=== PATIENT | female | born 1960 | race Caucasian/White ===

== ENCOUNTER 2023-01-08 10:19 | Observation (INO) | payer OTHER ==
[2023-01-08 10:23] VITALS: TEMP 97.9
[2023-01-08] MEDS ORDERED: KETOROLAC 15 MG/ML 1 ML VIAL IM STA (10:58)
[2023-01-08] MEDS ORDERED: LIDOCAINE 5% PATCH TOPICAL STA (11:12)
[2023-01-08] MEDS ORDERED: LIDOCAINE 5% PATCH TOPICAL SCH (11:15)
--- NOTE | 2023-01-08 11:55 | CT ---
EXAMINATION TYPE: CT sacrum wo con DATE OF EXAM: 01/08/2023 COMPARISON: None HISTORY: DDD, incontinence of bowels CT DLP: 1148 mGycm Automated exposure control for dose reduction was used. FINDINGS: There is broad-based disc herniation greater paracentrally on the right with ligamentum flavum hypert rophy is seen at the first 2 images and partially included in the field of view compatible severe can al stenosis sac compression with bilateral foraminal protrusion. Disc herniation or fragment extendin g extruded along the paracentral margin of the L5 vertebral body not excluded recommend MRI. Small bone island is seen within the left iliac bone. The sacrum is intact and the SI joints are symm etric. No acute fracture. Spina bifida occulta sacrococcygeal junction. Remaining osseous structures are intact. IMPRESSION: 1. PARTIALLY INCLUDED IN FIELD OF VIEW IS WHAT APPEARS TO BE A DISC HERNIATION GREATER PARACENTRALLY ON THE RIGHT 4-L5 WITH POSSIBLE EXTRUDED FRAGMENT AND SEVERE COMPRESSION OF THECAL SAC AND FORAMINAL ENCROACHMENT. MRI RECOMMENDED.
--- NOTE | 2023-01-08 12:05 | CT ---
EXAMINATION TYPE: CT lumbar spine wo con DATE OF EXAM: 01/08/2023 11:50 AM COMPARISON: None HISTORY: DDD, incontinence of bowels CT DLP: 1304.2 mGycm Automated exposure control for dose reduction was used. Unenhanced CT of the lumbar spine was performed. Bone and soft tissue window settings are submitted as well as coronal and sagittal reconstructions. There is degenerative disc disease L2-L3 and there are multiple levels of Schmorl's nodes. Gallstones are incidentally noted. L1-L2: Normal disc space height. No disc herniation protrusion or central stenosis. No facet joint arthropathy. No evidence for foraminal encroachment. L2-L3: Diffuse disc bulging with facet arthropathy and ligamentum flavum protrusion. There is central canal stenosis and bilateral foraminal encroachment. L3-L4: Circumferential disc bulging. There is mild facet uropathy. Mild bilateral foraminal protrusio n with borderline canal doses. L4-L5: There is a large central and right paracentral disc herniation with possible extruded fragment resulting in severe compression of thecal sac and bilateral foraminal impingement. Extruded fragment extending in the right lateral recess and the differential diagnosis and the diagnosis is limited by a noncontrast CT in resolution recommended MRI. L5-S1: Normal disc space height. No disc herniation protrusion or central stenosis. No facet joint arthropathy. No evidence for foraminal encroachment. IMPRESSION: 1. At L4-L5 there is a large central/ right paracentral disc herniation with probable extruded fragme nt extending toward the right lateral recess and severe compression sac\spinal stenosis. Recommend MR I. Severe bilateral foraminal protrusions. 2. There is circumferential disc bulging L2-3 and L3-L4 with foraminal encroachment as discussed abov e. 3. Cholelithiasis
[2023-01-08] MEDS ORDERED: DEXAMETHASONE SOD PHOSPHATE 10 MG/ML 1 ML VIAL IVP STA (12:22)
[2023-01-08] MEDS ORDERED: SODIUM CHLORIDE 0.9% 1,000 ML IV STA (12:24)
[2023-01-08] MEDS ORDERED: HYDROmorphone 0.5 MG/0.5 ML SYRINGE IVP PRN (12:27)
--- NOTE | 2023-01-08 12:31 | ED ---
Back Pain HPI - General Chief Complaint: Back Pain/Injury Stated Complaint: Recheck Time Seen by Provider: 01/08/23 10:43 Source: patient Limitations: no limitations - History of Present Illness Initial Comments: Patient is a 62-year-old female who presents to the emergency department for back pain. Patient has chronic back pain she follows with her engineering technical specialist Dr. Brownlee. She normally has steroid injections which lately has not controlled her pain well. Patient states over the past 4 days she has had increased pain in her right lower back. No recent injury or fall. Patient has new onset numbness in her right lower extremity. She denies any focal deficit. Patient has also had consistent bowel and bladder incontinence. She denies fever, chills, burning with urination, blood in urine, blood in stool, abdominal pain, nausea, vomiting. No chest pain or shortness of breath. - Related Data Allergies Allergy/AdvReac Type Severity Reaction Status Date / Time No Known Allergies Allergy Verified 01/08/23 10:23 Review of Systems ROS Statement: Those systems with pertinent positive or pertinent negative responses have been documented in the HPI. ROS Other: All systems not noted in ROS Statement are negative. Past Medical History Past Medical History: Diabetes Mellitus Additional Past Medical History / Comment(s): Back History of Any Multi-Drug Resistant Organisms: None Reported Additional Past Surgical History / Comment(s): Neck, Carpal tunnel Past Psychological History: No Psychological Hx Reported Smoking Status: Current every day smoker Past Alcohol Use History: None Reported Past Drug Use History: Marijuana General Exam Limitations: no limitations General appearance: alert, in no apparent distress Head exam: Present: atraumatic, normocephalic, normal inspection Eye exam: Present: normal appearance, PERRL, EOMI. Absent: scleral icterus, conjunctival injection, periorbital swelling Respiratory exam: Present: normal lung sounds bilaterally. Absent: respiratory distress, wheezes, rales, rhonchi, stridor Cardiovascular Exam: Present: regular rate, normal rhythm, normal heart sounds. Absent: systolic murmur, diastolic murmur, rubs, gallop, clicks GI/Abdominal exam: Present: soft, normal bowel sounds. Absent: distended, tenderness, guarding, rebound, rigid Rectal exam: Present: normal rectal tone, hemorrhoids (external) Right Hip exam: Present: normal inspection, full ROM. Absent: tenderness, swelling Upper Leg exam: Present: normal inspection, full ROM Knee exam: Present: normal inspection, full ROM. Absent: tenderness, swelling Lower Leg exam: Present: normal inspection, full ROM. Absent: tenderness, swelling Ankle exam: Present: normal inspection, full ROM. Absent: tenderness, swelling Foot/Toe exam: Present: normal inspection, full ROM. Absent: tenderness, swelling Neurovascular tendon exam: Present: no vascular compromise Gait: observed and normal Neurological exam: Present: alert, oriented X3, CN II-XII intact Expanded Cranial nerves: EOM's Intact: Normal, Nystagmus: Normal, Facial Sensation: Normal, Facial Palsy with Forehead Movement: Normal, Facial Palsy without Forehead Movement: Normal Cerebellar function: Heel to [place]: Normal Sensory exam: Upper Extremity Light Touch: Normal, Lower Extremity Light Touch: Abnormal Right (non sensation of anterior/posterior thigh, anterior lower leg) Motor strength exam: RUE: 5, LUE: 5, RLE: 5, LLE: 5 Psychiatric exam: Present: normal affect, normal mood Skin exam: Present: warm, dry, intact, normal color. Absent: rash Course Vital Signs 01/08/23 10:20 Temperature 97.9 F Pulse Rate 60 Respiratory 22 Rate Blood Pressure 151/88 O2 Sat by Pulse 96 Oximetry Medical Decision Making - Medical Decision Making Was pt. sent in by a medical professional or institution (ISELA Haines, [employer], urgent care, hospital, or long-term...) When possible be specific @ -No Did you speak to anyone other than the patient for history (EMS, parent, family, police, friend...)? What history was obtained from this source @ -No Did you review nursing and triage notes (agree or disagree)? Why? @ -I reviewed and agree with nursing and triage notes Were old charts reviewed (outside hosp., previous admission, EMS record, old EKG, old radiological studies, urgent care reports/EKG's, long-term records)? Report findings @ -Reviewed MRI provided in paper copy showing bulging disks throughout the lumbar spine Differential Diagnosis (chest pain, altered mental status, abdominal pain women, abdominal pain men, vaginal bleeding, weakness, fever, dyspnea, syncope, headache, dizziness, GI bleed, back pain, seizure, CVA, palpatations, mental health)? @ -Differential Back Pain: Strain, zoster, cauda equina syndrome, epidural abscess, vertebral osteomyeli tis, discitis, fracture, subluxation, disc herniation, DJD, spinal stenosis, dissection, AAA, pancreatitis, peptic ulcer disease, pyelonephritis, kidney stone, this is not meant to be an all-inclusive list. EKG interpreted by me (3pts min.). @ -As above X-rays interpreted by me (1pt min.). @ -None done CT interpreted by me (1pt min.). @ -Yes, CT of the lumbar and sacral spine shows disc herniation greater paracentrally on the right L4-L5 of possible extruded fragment and severe com pression of the thecal sac and foraminal enroachment U/S interpreted by me (1pt. min.). @ -None done What testing was considered but not performed or refused? (CT, X-rays, U/S, labs)? Why? @ -None What meds were considered but not given or refused? Why? @ -None Did you discuss the management of the patient with other professionals (professionals i.e. , PA, [employer]WRITER, lab, RT, psych nurse, social security benefits interviewer, intranet developer, teacher, welfare officer, nurse case management)? Give summary @ -Yes, Dr. Ortega. See hospital course. Was smoking cessation discussed for >3mins.? @ -No Was critical care preformed (if so, how long)? @ -No Were there social determinants of health that impacted care today? How? (Homelessness, low income, unemployed, alcoholism, drug addiction, t ransportation, low edu. Level, literacy, decrease access to med. care, fdc, rehab)? @ -No Was there de-escalation of care discussed even if they declined (Discuss DNR or withdrawal of care, Hospice)? DNR status @ -No What co-morbidities impacted this encounter? (DM, HTN, Smoking, COPD, CAD, Cancer, CVA, ARF, Chemo, Hep., AIDS, mental health diagnosis, sleep apnea, morbid obesity)? @ -None Was patient admitted / discharged? Hospital course, mention meds given and route, prescriptions, significant lab abnormalities, going to OR and other pertinent info. @ -Patient presenting for back pain with new onset leg numbness and bowel and bladder incontinence. The right lower extremity is normal appearing DP 2+. Patient walks around and room during evaluation she has full range of motion. Patient does not have sensation of light touch to the right anterior and posterior thigh, right anterior lower leg. Patient has good rectal tone. Bladder scan < [address] of the lumbar and sacral spine shows disc herniation greater paracentrally on the right L4-L5 of possible extruded fragment and severe compression of the thecal sac and foraminal enroachment. Case discussed with Dr. Ortega who recommends admission to medicine with him on consult. Patient will have [id number] IV steroids. She is NPO for possible surgical procedure. Case discussed with Dr. Lion who accepts admission Undiagnosed new problem with uncertain prognosis? @ -[No] Drug Therapy requiring intensive ontoring for toxicity (Heparin, Ntr, Insulin, Cardizem)? @ -[No] Wre any procedures done? @ -[No] Diagnosis/syptom? @ Disc herniation, bowel and bladder incontinence Acute, or Chronic, or Acute on Chronic? @ -Acute Uncomplicated (without systemic symptoms) or Complicated (systemic symptoms)? @ -Complicated Side effects of treatment? @ -No Exacerbation, Progression, or Severe Exacerbation? @ -No Poses a threat to life or bodily function? How? (Chest pain, [place], [place], pneumonia, PE, COPD, DKA, ARF, appy, cholecystitis, CVA, Diverticulitis, Homicidal, Suicidal, threat to staff... and all critical care pts) @ -No Dr. Almanza is my attending - Lab Data Result diagrams: 01/08/23 13:02 01/08/23 13:02 Lab Results 01/08/23 01/08/23 Range/Units 13:02 13:02 WBC 7.0 (3.8-10.6) k/uL RBC 4.48 (3.80-5.40) m/uL Hgb 13.1 (11.4-16.0) gm/dL Hct 39.4 (34.0-46.0) % MCV 88.1 (80.0-100.0) fL MCH 29.3 (25.0-35.0) pg MCHC 33.2 (31.0-37.0) g/dL RDW 13.9 (11.5-15.5) % Plt Count 229 (150-450) k/uL MPV 8.4 Neutrophils % 59 % Lymphocytes % 32 % Monocytes % 4 % Eosinophils % 3 % Basophils % 0 % Neutrophils # 4.1 (1.3-7.7) k/uL Lymphocytes # 2.2 (1.0-4.8) k/uL Monocytes # 0.3 (0-1.0) k/uL Eosinophils # 0.2 (0-0.7) k/uL Basophils # 0.0 (0-0.2) k/uL Sodium 140 (137-145) mmol/L Potassium 4.5 (3.5-5.1) mmol/L Chloride 104 (98-107) mmol/L Carbon Dioxide 32 H (22-30) mmol/L Anion Gap 4 mmol/L BUN 9 (7-17) mg/dL Creatinine 0.57 (0.52-1.04) mg/dL Est GFR (CKD-EPI)AfAm >90 (>60 ml/min/1.73 sqM) Est GFR (CKD-EPI)NonAf >90 (>60 ml/min/1.73 sqM) Glucose 86 (74-99) mg/dL Calcium 8.5 (8.4-10.2) mg/dL Total Bilirubin 0.5 (0.2-1.3) mg/dL AST 24 (14-36) U/L ALT 21 (4-34) U/L Alkaline Phosphatase 72 (38-126) U/L Total Protein 6.0 L (6.3-8.2) g/dL Albumin 3.7 (3.5-5.0) g/dL Disposition Clinical Impression: Lumbar disc herniation, Bowel and bladder incontinence Disposition: ADMITTED IP TO THIS [facility] Condition: Stable Referrals: Suzan Prather, RN [REGISTERED NURSE] - 1-2 days
[2023-01-08] MEDS ORDERED: NALOXONE 0.4 MG/ML 1 ML VIAL IV PRN (12:47)
[2023-01-08] MEDS ORDERED: SODIUM CHLORIDE 0.9% 1,000 ML IV SCH (13:00)
[2023-01-08 13:08] LABS: Basophils % (A) 0 %; Eosinophils # (A) 0.2 k/uL (0-0.7); Eosinophils % (A) 3 %; HCT 39.4 % (34.0-46.0); HGB 13.1 gm/dL (11.4-16.0); Lymphocytes # (A) 2.2 k/uL (1.0-4.8); Lymphocytes % (A) 32 %; MCH 29.3 pg (25.0-35.0); MCHC 33.2 g/dL (31.0-37.0); MCV 88.1 fL (80.0-100.0); Mean Platelet Volume 8.4; Monocytes # (A) 0.3 k/uL (0-1.0); Monocytes % (A) 4 %; Neutrophils # (A) 4.1 k/uL (1.3-7.7); Neutrophils % (A) 59 %; Platelet Count 229 k/uL (150-450); RBC 4.48 m/uL (3.80-5.40); RDW 13.9 % (11.5-15.5)
[2023-01-08 13:17] LABS: ALT 21 U/L (4-34); AST 24 U/L (14-36); African American GFR (CKD) >90 (>60 ml/min/1.73 sqM); Albumin 3.7 g/dL (3.5-5.0); Alkaline Phosphatase 72 U/L (38-126); Anion Gap 4 mmol/L; Blood Urea Nitrogen 9 mg/dL (7-17); Calcium 8.5 mg/dL (8.4-10.2); Carbon Dioxide 32 mmol/L (22-30); Chloride 104 mmol/L (98-107); Glucose 86 mg/dL (74-99); Non-African American GFR(CKD) >90 (>60 ml/min/1.73 sqM); Potassium 4.5 mmol/L (3.5-5.1); Sodium 140 mmol/L (137-145); Total Bilirubin 0.5 mg/dL (0.2-1.3)
[2023-01-08 13:30] LABS: INR 0.9 (<1.2); Partial Thromboplastin Time 22.8 sec (22.0-30.0); Prothrombin Time 9.8 sec (9.0-12.0)
[2023-01-08] MEDS ORDERED: DEXTROSE 50% SYRINGE 50 ML IVP STA (13:46)
[2023-01-08] MEDS: HYDROmorphone 0.5 MG/0.5 ML SYRINGE IVP STA ×2 (13:50→14:34)
[2023-01-08 14:23] LABS: Glucose,Whole Blood 99 mg/dL (70-110)
[2023-01-08 14:28] VITALS: BP 137/77; PULSE 61; RESP 18
[2023-01-08] MEDS ORDERED: NICOTINE 14MG/24HR PATCH TRANSDERM SCH (15:00)
[2023-01-08] MEDS ORDERED: DEXAMETHASONE SOD PHOSPHATE 10 MG/ML 1 ML VIAL IVP SCH (17:00)
[2023-01-08 17:09] LABS: Glucose,Whole Blood 165 mg/dL (70-110)
[2023-01-08] MEDS ORDERED: DEXTROSE 50% SYRINGE 50 ML IVP PRN ×2 (17:57)
--- NOTE | 2023-01-08 18:00 | P.HPIM ---
History of Present Illness H&P Date: 01/08/23 Patient is a 62-year-old female with PMH of vertigo, diabetes mellitus, hypertension, dyslipidemia that presents to the ED for worsening back pain. Patient reports a history of chronic lower back pain that has been ongoing for many years. More recently, patient slipped on ice and fell on her buttocks which exacerbated the pain. She reports her pain to be right lower back, sharp and stabbing in nature, with radiation down the right lower extremity. She also reports numbness over the lateral aspect of the right hip. Two weeks ago, she reports receiving a pain injection in her right back and since then has been experiencing bladder and bowel incontinence. She denies any headache, lower ex tremity edema, nausea or vomiting, fever or chills, cough, chest pain, shortness of breath, palpitations. No changes in appetite or weight. She denies any dizziness. In the ED, vital signs are stable. CBC and coagulation panel was unremarkable. CMP showed bicarb of 32 and total protein of 6. CT lumbar spine showed L4-L5 disc herniation with severe spinal stenosis. Patient is admitted for orthopedic surgery consult. Pertinent positives and negatives as discussed in HPI, a complete review of systems was performed and all other systems are negative. General: non toxic, no distress, appears at stated age Derm: warm, dry Head: atraumatic, normocephalic, symmetric Eyes: EOMI, no lid lag, anicteric sclera Cardiovascular: S1S2 reg, no murmur, positive posterior tibial pulse bilateral, Lungs: CTA bilateral, no rhonchi, no rales , no accessory muscle use Abdominal: soft, nontender to palpation, no guarding, no appreciable organomegaly Ext: no gross muscle atrophy, no edema, no contractures, L hand amputated Neuro: no focal neuro deficits Psych: Alert, oriented, appropriate affect Severe spinal stenosis Smoker Diabetes mellitus Hypertension Dyslipidemia Vertigo Based on my assessment of this patient, this patient meets a high complexity level of care. Patient has an acute diagnosis of severe spinal stenosis with bladder and bowel incontinence that poses a threat to life or bodily function. Patient has been started on Decadron 6 g IV every 4 hours. Pain control with Dilaudid 0.5 mg IV every 4 hours. Advance neurochecks ordered. Fall precautions in place. MRI lumbar spine ordered. Orthopedic surgery on board. Nicotine patch 14 mg daily ordered. Diabetes mellitus: Insulin sliding-scale. Accu-Cheks before meals at bedtime. Hypoglycemic precautions. Hypertension: Lisinopril 10 mg by mouth daily. Dyslipidemia: Simvastatin 20 mg by mouth daily. Vertigo: Meclizine 25 mg by mouth twice a day. Patient names her daughter decision maker if she can't make decisions for herself. Patient would like to be no code. I have reviewed the following absence management consultant notes: None. I have reviewed the results of the following tests: CBC and coagulation panel was unremarkable. CMP showed bicarb of 32 and total protein of 6. CT lumbar spine showed L4-L5 disc herniation with severe spinal stenosis. I have ordered the following tests: Agree with MRI of lumbar spine. Hemoglobin A1c ordered. I have discussed the care of this patient with the following independent historian: None. I have independently interpreted the following test below: None. I have discussed the management of this patient with the following physician: Case was discussed with the ED physician and decision made to admit the patient for workup of severe spinal stenosis. This patient has a high risk of morbidity due to the following reasons: Patient requires Dilaudid IV. Past Medical History Past Medical History: Diabetes Mellitus, Hyperlipidemia, Hypertension Additional Past Medical History / Comment(s): vertigo, chronic back pain, degenerative disc disease History of Any Multi-Drug Resistant Organisms: None Reported Additional Past Surgical History / Comment(s): back fusion , Carpal tunnel Past Anesthesia/Blood Transfusion Reactions: No Reported Reaction Past Psychological History: No Psychological Hx Reported Smoking Status: Current every day smoker Past Alcohol Use History: None Reported Past Drug Use History: Marijuana Additional Drug Use History / Comment(s): smokes marijuana daily Medications and Allergies Home Medications Medication Instructions Recorded Confirmed Type Gabapentin [Neurontin] 400 mg PO BID 01/08/23 01/08/23 History Meclizine [Antivert] 25 mg PO BID 01/08/23 01/08/23 History Multivit-Min/Iron/Folic/Lutein 1 tab PO DAILY 01/08/23 01/08/23 History [Centrum Silver Women Tablet] Simvastatin [Zocor] 20 mg PO DAILY 01/08/23 01/08/23 History Sleep Aid Otc(Unknown) 1 tab PO HS 01/08/23 01/08/23 History lisinopriL [Zestril] 10 mg PO DAILY 01/08/23 01/08/23 History metFORMIN HCL 500 mg PO BID 01/08/23 01/08/23 History Allergies Allergy/AdvReac Type Severity Reaction Status Date / Time No Known Allergies Allergy Verified 01/08/23 14:10 Physical Exam Vitals: Vital Signs Temp Pulse Pulse Resp BP BP Pulse Ox 01/08/23 14:23 97.9 F 61 18 137/77 97 01/08/23 10:20 97.9 F 60 22 151/88 96 Intake and Output 01/08/23 01/08/23 01/08/23 06:59 14:59 22:59 Other: Weight 81.647 kg Results CBC & Chem 7: 01/08/23 13:02 01/08/23 13:02 Labs: Abnormal Lab Results - Last 24 Hours (Table) 01/08/23 01/08/23 Range/Units 13:02 17:08 Carbon Dioxide 32 H (22-30) mmol/L POC Glucose (mg/dL) 165 H (70-110) mg/dL Total Protein 6.0 L (6.3-8.2) g/dL Thrombosis Risk Factor Assmnt - Choose All That Apply Each Factor Represents 1 point: Age 41-60 years, Obesity (BMI >25) Other Risk Factors: No Other congenital or acquired thrombophilia - If yes, enter type in comment: No Thrombosis Risk Factor Assessment Total Risk Factor Score: 2 Thrombosis Risk Factor Assessment Level: Low Risk
--- NOTE | 2023-01-08 18:05 | P.CNOR ---
History of Present Illness - HPI Consult date: 01/08/23 Requesting physician: Kera Cruz Consult reason: low back pain History of present illness: History of Presenting Illness Patient is a pleasant 62 a female who presented to the ER for low back pain. Patient states she has had chronic low back pain for many years and has been following with [facility] Jluis Saunders. [place]. Patient has received multiple injections throughout the years and states recently she has not been finding relief. She states she has continuous low back pain that radiates into the bilateral lower extremities. Patient states she does have numbness and tingling into the bilateral lower extremities and that her right buttock and right posterior thigh are continuously numb causing it to give out periodically when ambulating. Patient does report that she has not had any fall or injury, she states is usually able to catch herself from falling. Patient lives with her spouse and is normally independent. Patient does have a medical history of diabetes, hyperlipidemia, hypertension, and vertigo. 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 Patient states she does smoke marijuana daily and denies any alcohol use. Patient seen and examined this afternoon at bedside. She is sitting upright in bed. RN reports that patient has been up ambulatory within room without difficulty, patient has been instructed to use call light and ask for assistance at this time for safety. Patient states when she arrived to the ER she had severe back pain that radiated to bilateral lower extremities. She states since she has received IV medications she is not having any of the symptoms at this time. She states she has had recent incontinence of bowel and bladder. She denies perineal numbness or tingling She denies any fever, chills, or shortness of breath. Review of Systems Pertinent positives and negatives as discussed in HPI, a complete review of systems was performed and all other systems are negative. Physical Examination Patient is alert and oriented 3 appears well-nourished well-hydrated is in no acute distress. They do not appear septic. On exam the patient has no tenderness to palpation of her thoracic or lumbar spine. There is no edema or ballottement sign. Lower extremities with 5/5 strength in all major muscle groups Upper extremities show 5/5 strength in all major muscle groups. 2/4DTR all UE and LE b/l Patient shows a negative Homans, Dior's, negative Babinski's negative clonus bilaterally. Negative straight leg raise bilaterally. No tensioning signs. Cranial nerves II through XII are grossly intact. There is FROM that is painless of the b/l UE and LE in all major joints without pain. They are intact to light touch sensation in L2 to S1 nerve distribution. Patient has palpable dorsalis pedis was posterior tibial pulses. Compartments are soft and compressible. Assessment and Plan CT of the Lumbar spine demonstrates at L4-L5 there is a large central/right paracentral disc herniation with probable extruded fragment extending towards the right lateral recess and severe compression sac\spinal stenosis. Severe bilateral foraminal protrusions. Recommendation of MRI of the lumbar spine. Chronic low back pain L4-L5 disc herniation Bilateral lower extremity radiculopathy 2. Appreciate medical management 3. Pain management - IV steroids, oral and IV pain medications 4. GI prophylaxis - per medicine 5. DVT prophylaxis - SCDs (bilateral) 6. PT/OT - weightbearing as tolerated with a walker as needed. 7. Appreciate consult I reviewed and discussed this case with my attending Dr. Ortega, whom has re viewed this chart and films and is in agreement with assessment and plan of care as outlined above. I have personally seen and examined the patient, performed the documentation and the assessment and plan as written. Number of minutes spent on the visit: 20m. Past Medical History Past Medical History: Diabetes Mellitus, Hyperlipidemia, Hypertension Additional Past Medical History / Comment(s): vertigo, chronic back pain, degenerative disc disease History of Any Multi-Drug Resistant Organisms: None Reported Additional Past Surgical History / Comment(s): back fusion , Carpal tunnel Past Anesthesia/Blood Transfusion Reactions: No Reported Reaction Past Psychological History: No Psychological Hx Reported Smoking Status: Current every day smoker Past Alcohol Use History: None Reported Past Drug Use History: Marijuana Additional Drug Use History / Comment(s): smokes marijuana daily Medications and Allergies Home Medications Medication Instructions Recorded Confirmed Type Gabapentin [Neurontin] 400 mg PO BID 01/08/23 01/08/23 History Meclizine [Antivert] 25 mg PO BID 01/08/23 01/08/23 History Multivit-Min/Iron/Folic/Lutein 1 tab PO DAILY 01/08/23 01/08/23 History [Centrum Silver Women Tablet] Simvastatin [Zocor] 20 mg PO DAILY 01/08/23 01/08/23 History Sleep Aid Otc(Unknown) 1 tab PO HS 01/08/23 01/08/23 History lisinopriL [Zestril] 10 mg PO DAILY 01/08/23 01/08/23 History metFORMIN HCL 500 mg PO BID 01/08/23 01/08/23 History Allergies Allergy/AdvReac Type Severity Reaction Status Date / Time No Known Allergies Allergy Verified 01/08/23 14:10 Results - Labs Labs: Abnormal Lab Results - Last 24 Hours (Table) 01/08/23 Range/Units 13:02 Carbon Dioxide 32 H (22-30) mmol/L Total Protein 6.0 L (6.3-8.2) g/dL H & H 01/08/23 Range/Units 13:02 Hgb 13.1 (11.4-16.0) gm/dL Hct 39.4 (34.0-46.0) % Coagulation 01/08/23 Range/Units 13:02 INR 0.9 (<1.2) Result Diagrams: 01/08/23 13:02 01/08/23 13:02 - Diagnostic results CT Scan - lumbar: report reviewed, image reviewed
--- NOTE | 2023-01-08 20:11 | MR ---
EXAMINATION TYPE: MR lumbar spine wo con DATE OF EXAM: 01/08/2023 COMPARISON: 01/08/2023 CT lumbar spine HISTORY: New onset bladder/bowel incontinence, Low back pain CONTRAST: 0 mL intravenous Gadavist. TECHNIQUE: Multiplanar, multisequence images of the lumbar spine were acquired. FINDINGS: L5-S1: No significant disc bulge or disc herniation. No spinal canal stenosis. No foraminal stenosi s. L4-L5: Large right paracentral disc herniation with significant anterior thecal sac compression. Some facet hypertrophy and ligamentum flavum laxity is present contributing to spinal canal stenosis. Sev ere right and mild left foraminal stenosis present. L3-L4: No significant disc bulge or disc herniation. No spinal canal stenosis. No foraminal stenosi s. L2-L3: There is narrowing of the disc height. Mild broad-based disc bulge is present with anterior th ecal sac contact. No spinal canal stenosis is present. Neural foramen are patent. L1-L2: No significant disc bulge or disc herniation. No spinal canal stenosis. No foraminal stenosi s. T12-L1: No significant disc bulge or disc herniation. No spinal canal stenosis. No foraminal stenos is. . IMPRESSION: 1. Large broad right paracentral disc herniation L4-5 with moderate thecal sac compression. This cont ributes to spinal canal stenosis in conjunction with facet hypertrophy and ligamentum flavum laxity. Severe right foraminal stenosis is present. Findings are compatible with the CT findings. 2. Degenerative disc changes L2-L3. Mild disc bulge is present without spinal canal stenosis.
[2023-01-08] MEDS ORDERED: INSULIN ASPART (NovoLOG) 100 UNIT/ML VIAL SQ SCH (21:00)
[2023-01-08] MEDS ORDERED: GABAPENTIN 400 MG CAP PO SCH (21:00)
[2023-01-08] MEDS ORDERED: MECLIZINE 25 MG TAB PO SCH (21:00)
--- NOTE | 2023-01-09 07:54 | P.DS ---
Providers Date of admission: 01/08/23 13:31 Expected date of discharge: 01/09/23 Attending physician: Jamshid Lion MD Consults: 01/08/23 12:47 Consult Physician Routine Consulting Provider: Nemesio Ortega Consult Reason/Comments: disc hernation, bowel/bladder incontinence Do you want consulting provider notified?: Already Contacted Primary care physician: [facility] Course: AMA note Patient is a 62-year-old female with PMH of vertigo, diabetes mellitus, hypertension, dyslipidemia that presents to the ED for worsening back pain. Patient reports a history of chronic lower back pain that has been ongoing for many years. More recently, patient slipped on ice and fell on her buttocks which exacerbated the pain. She reports her pain to be right lower back, sharp and stabbing in nature, with radiation down the right lower extremity. She also reports numbness over the lateral aspect of the right hip. Two weeks ago, she reports receiving a pain injection in her right back and since then has been experiencing bladder and bowel incontinence. She denies any headache, lower extremity edema, nausea or vomiting, fever or chills, cough, chest pain, short ness of breath, palpitations. No changes in appetite or weight. She denies any dizziness. In the ED, vital signs are stable. CBC and coagulation panel was unremarkable. CMP showed bicarb of 32 and total protein of 6. CT lumbar spine showed L4-L5 disc herniation with severe spinal stenosis. Patient was admitted for orthopedic surgery consult. She was started on Deadron IV. MRI L spine was ordered and Orthopedic surgery was consulted. Patient left against medical advice prior to being seen by Orthopedic surgery. Pertinent studies include CT L spine, CT sacrum and MRI lumbar spine. Discharge Diagnosis: Severe spinal stenosis Smoker Diabetes mellitus Hypertension Dyslipidemia Vertigo Patient Condition at Discharge: Undetermined Plan - Discharge Summary Discharge Rx Participant: Yes New Discharge Prescriptions: No Action lisinopriL [Zestril] 10 mg PO DAILY Simvastatin [Zocor] 20 mg PO DAILY metFORMIN HCL 500 mg PO BID Sleep Aid Otc(Unknown) 1 tab PO HS Gabapentin [Neurontin] 400 mg PO BID Meclizine [Antivert] 25 mg PO BID Multivit-Min/Iron/Folic/Lutein [Centrum Silver Women Tablet] 1 tab PO DAILY Discharge Medication List Gabapentin [Neurontin] 400 mg PO BID 01/08/23 [History] Meclizine [Antivert] 25 mg PO BID 01/08/23 [History] Multivit-Min/Iron/Folic/Lutein [Centrum Silver Women Tablet] 1 tab PO DAILY 01/08/23 [History] Simvastatin [Zocor] 20 mg PO DAILY 01/08/23 [History] Sleep Aid Otc(Unknown) 1 tab PO HS 01/08/23 [History] lisinopriL [Zestril] 10 mg PO DAILY 01/08/23 [History] metFORMIN HCL 500 mg PO BID 01/08/23 [History] Follow up Appointment(s)/Referral(s): Suzan Prather RN [REGISTERED NURSE] - 1-2 days Discharge Disposition: Left Against Medical Advice
[2023-01-09] MEDS ORDERED: lisinopriL 10 MG TAB PO SCH (09:00)
[2023-01-09] MEDS ORDERED: ATORVASTATIN 10 MG TAB PO SCH (09:00)
== END 2023-01-08 19:01 | disposition home or self-care (01) ==
LOC: EC 10:19 → 5NMEDONC 13:31 → INTOOBSV 13:31 → 5NMEDONC 13:49 → UNDODISIN 19:01 → UNDODISOB 19:01
PROVIDERS: ADMIT Student in an Organized Health Care Education/Training Program; ATTEND Student in an Organized Health Care Education/Training Program
DX: M51.16 Intervertebral disc disorders with radiculopathy, lumbar region (principal); M48.061 Spinal stenosis, lumbar region without neurogenic claudication; R15.9 Full incontinence of feces; R32 Unspecified urinary incontinence; E11.9 Type 2 diabetes mellitus without complications; E78.5 Hyperlipidemia, unspecified; I10 Essential (primary) hypertension; R42 Dizziness and giddiness; F17.200 Nicotine dependence, unspecified, uncomplicated; Z79.84 Long term (current) use of oral hypoglycemic drugs; Z79.899 Other long term (current) drug therapy; Z53.29 Procedure and treatment not carried out because of patient's decision for other reasons
CPT/HCPCS: 96376; 96372; 96374; 96375; 99285; 51798; 36415; 80053; 85025; 85610; 85730; 72131; 72192; 72148; G0378 ×2; S4990; J1100; J1885; J1170

== ENCOUNTER → 2024-02-21 | Outpatient (CLI) | payer OTHER ==
--- NOTE | 2024-02-22 10:58 | MR ---
EXAMINATION TYPE: MR lumbar spine wo con DATE OF EXAM: 02/21/2024 COMPARISON: 01/08/2023 HISTORY: Low back pain into right side x2 months, Fell off porch, Hx back surgery Jun 2023 CONTRAST: 0 mL intravenous Gadavist. TECHNIQUE: Multiplanar, multisequence images of the lumbar spine were acquired. FINDINGS: L5-S1: No significant disc bulge or disc herniation. No spinal canal stenosis. No foraminal stenosi s. Mild facet hypertrophy may be present. L4-L5: There is increased endplate signal change can be compatible with posttraumatic change or Modic type I degenerative changes. There is a very large disc herniation L4-5 with the center of mass in the right paracentral region. M arked impression on thecal sac and spinal canal stenosis is present. Facet hypertrophy and ligamentum flavum laxity is present contributing. Severe right and moderate left foraminal stenosis is present. L3-L4: No significant disc bulge or disc herniation. No spinal canal stenosis. No foraminal stenosi s. Mild facet hypertrophy is present L2-L3: No significant disc bulge or disc herniation. No spinal canal stenosis. No foraminal stenosi s. L1-L2: No significant disc bulge or disc herniation. No spinal canal stenosis. No foraminal stenosi s. T12-L1: No significant disc bulge or disc herniation. No spinal canal stenosis. No foraminal stenos is. IMPRESSION: 1. Very large disc herniation L4-5 contributing to severe spinal canal stenosis. Severe right and mod erate left foraminal stenosis is present at this level.
== END | disposition home or self-care (01) ==
LOC: RADMRIMAIN 13:45
PROVIDERS: ATTEND Family Medicine
DX: M51.26 Other intervertebral disc displacement, lumbar region (principal); M51.36 Other intervertebral disc degeneration, lumbar region; M48.061 Spinal stenosis, lumbar region without neurogenic claudication
CPT/HCPCS: 72148